=== PATIENT | male | born 1955 | race Caucasian/White ===

== ENCOUNTER 2020-02-07 06:02 | Outpatient (CLI) | payer OTHER ==
[2020-02-07 10:58] LABS: #Basophils 0.1 thou/uL (0.0-0.2); #Eosinphils 0.2 thou/uL (0.0-0.7); #Lymphocytes 2.1 thou/uL (1.20-3.40); #Monocytes 0.6 thou/uL (0.11-0.59); #Neutrophils 4.6 thou/uL (1.40-6.50); %Basophils 0.9 % (0.0-1.0); %Eosinophils 2.2 % (0.0-10.0); %Neutrophils 60.9 % (42.0-75.0); Hemoglobin 15.6 g/dL (14.0-18.0); Mean Corpuscular HGB CONC 32.6 g/dL (32.0-36.0); Mean Corpuscular Volume 92.2 fL (78.0-98.0); Platelet Count 206 thou/uL (130-400); RBC Distribution Width 11.9 % (11.5-14.5); Red Blood Cell (RBC) Count 5.19 mill/uL (4.70-6.10); White Blood Cell (WBC) Count 7.5 thou/uL (4.8-10.8)
[2020-02-07 11:00] LABS: Prothrombin Time 13.5 sec (12.0-14.7)
[2020-02-07 11:37] LABS: Anion Gap 18 mmol/L (10-20); BUN (Urea Nitrogen) 20 mg/dL (8.4-25.7); Calc. Creatinine Clearance 0 mL/min (70-130); Calcium 9.6 mg/dL (7.8-10.44); Carbon Dioxide 24 mmol/L (23-31); Chloride 102 mmol/L (98-107); Estimated GFR-MDRD Greater than 90; Glucose 89 mg/dL (80-115); Potassium 4.7 mmol/L (3.5-5.1); Sodium 139 mmol/L (136-145)
--- NOTE | 2020-02-07 14:43 | EKG ---
Test Reason : Blood Pressure : / mmHG Vent. Rate : 075 BPM Atrial Rate : 075 BPM P-R Int : 158 ms QRS Dur : 108 ms QT Int : 402 ms P-R-T Axes : 049 006 074 degrees QTc Int : 448 ms Normal sinus rhythm Normal ECG No previous ECGs available Confirmed by QUINTIN HAMILTON M.D. ([id number]) on 02/07/2020 2:42:39 PM Referred By: JANNETH Confirmed By:QUINTIN HAMILTON M.D.
[2020-02-07 16:52] LABS: SARS-CoV-2 MS2 Positive; SARS-CoV-2 N Gene Negative; SARS-CoV-2 S Gene Negative; SARS-CoV-2 by NAA Not Detected (NotDetected); SARS-CoV-2 orf1ab Negative
== END 2020-02-07 06:03 | disposition home or self-care (01) ==
LOC: LABBT 06:02
PROVIDERS: ATTEND Orthopaedic Surgery
DX: Z01.818 Encounter for other preprocedural examination (principal); Z20.828 Contact with and (suspected) exposure to other viral communicable diseases; M19.011 Primary osteoarthritis, right shoulder
CPT/HCPCS: 80048; 85025; 85610; 87635; 93005; 93010; U0003

== ENCOUNTER 2020-02-07 08:30 | Inpatient (IN) | payer OTHER ==
[2020-02-10] MEDS ORDERED: Sodium Chloride 0.9% 100 ML ONE (06:11)
[2020-02-10] MEDS ORDERED: Vancomycin 1.5 GRAM/300 ML BAG ONE (06:11)
[2020-02-10] MEDS ORDERED: Tranexamic Acid 1,000 MG/10 ML VIAL ONE (06:11)
[2020-02-10] MEDS ORDERED: Fentanyl 100 MCG/2 ML VIAL ONE ×2 (06:50→07:35)
[2020-02-10] MEDS ORDERED: Midazolam HCl 2 mg/2 ml Vial ONE (06:50)
[2020-02-10] MEDS ORDERED: HYDROcodone/Acetaminophen 10/325 mg Tablet PO PRN ×4 (06:57→07:45)
[2020-02-10] MEDS ORDERED: Fentanyl 100 MCG/2 ML VIAL IV PRN (07:41)
[2020-02-10] MEDS ORDERED: Ropivacaine 0.2% 550 ML 550 ML NERVE BLCK SCH (07:45)
[2020-02-10] MEDS ORDERED: Zolpidem Tartrate 5 MG TAB PO PRN (07:45)
[2020-02-10] MEDS ORDERED: Ondansetron PF 4 MG/2 ML Vial IVP PRN (07:45)
[2020-02-10] MEDS ORDERED: traMADol HCl 50 MG TAB PO PRN ×2 (07:45)
[2020-02-10] MEDS ORDERED: Promethazine HCl 25 MG/ML VIAL IM PRN ×2 (07:45→08:43)
[2020-02-10] MEDS ORDERED: SUGAMMADEX SODIUM 200 MG/2 ML VIAL ONE (08:25)
[2020-02-10] MEDS ORDERED: Promethazine HCl 25 MG/ML VIAL SLOW IVP PRN (08:43)
[2020-02-10] MEDS ORDERED: PACU-Morphine 4MG/ML VIAL SLOW IVP PRN (08:43)
[2020-02-10] MEDS ORDERED: Ondansetron PF 4 MG/2 ML Vial ONE (10:56)
[2020-02-10] MEDS ORDERED: PROPOFOL 200 MG/20 ML VIAL ONE (10:56)
[2020-02-10] MEDS ORDERED: Lidocaine 1% PF 5 ML VIAL ONE (10:56)
[2020-02-10] MEDS ORDERED: Rocuronium Bromide 10 MG/ML (10ML VIAL) ONE (10:56)
[2020-02-10] MEDS ORDERED: Ketorolac Tromethamine 30 MG/ML VIAL ONE (10:56)
[2020-02-10] MEDS ORDERED: Naloxone HCl 0.4 mg/ml Vial ONE (10:56)
[2020-02-10] MEDS ORDERED: PHENYLEPHRINE-NS 100 MCG/ML 10 ML SYRINGE ONE (10:56)
[2020-02-10] MEDS ORDERED: Ropivacaine 0.2% HCl/PF (40 MG/20 ML VIAL) ONE (10:56)
[2020-02-10] MEDS ORDERED: EPHEDRINE 25 MG/5 ML SYRINGE ONE (10:56)
[2020-02-10] MEDS ORDERED: Ropivacaine 0.5% HCl/PF (150 MG/30 ML VIAL) ONE (10:56)
[2020-02-10 11:57] VITALS: BMI 32.5
[2020-02-10] MEDS ORDERED: Ketorolac Tromethamine 30 MG/ML VIAL IVP SCH (12:00)
[2020-02-10] MEDS: Bupropion 150 MG XL TAB PO SCH (12:05)
[2020-02-10] MEDS: Citalopram 20 MG TAB PO SCH (12:05)
[2020-02-10] MEDS: Amlodipine 5 MG TAB PO SCH (12:05)
[2020-02-10] MEDS: Hydrochlorothiazide 25 MG TAB PO SCH (12:50)
[2020-02-10] MEDS: metFORMIN 500 MG TAB PO SCH ×2 (12:50→21:16)
[2020-02-10] MEDS: Trospium 20 MG TAB PO SCH ×2 (12:50→21:16)
[2020-02-10] MEDS: Losartan 25 MG TAB PO SCH (12:50)
[2020-02-10] MEDS: Ketorolac Tromethamine 30 MG/ML VIAL IVP SCH ×3 (13:01→23:45)
[2020-02-10] MEDS: CEFAZOLIN 2 GM in Premix Bag 1 BAG IVPB SCH ×2 (13:02→21:28)
[2020-02-10] MEDS ORDERED: rOPINIRole HCl 1 MG TAB PO SCH (21:00)
[2020-02-11] MEDS: Ketorolac Tromethamine 30 MG/ML VIAL IVP SCH ×2 (05:42→13:06)
--- NOTE | 2020-02-11 07:19 | OP ---
DATE OF PROCEDURE: 02/10/2020 PREOPERATIVE DIAGNOSIS: End-stage osteoarthritis, right glenohumeral joint. POSTOPERATIVE DIAGNOSIS: End-stage osteoarthritis, right glenohumeral joint. PROCEDURE PERFORMED: Press-fit/hybrid right total shoulder arthroplasty. CLAIMS SORTER: Abhishek Villegas PA-C ANESTHESIA: General via endotracheal tube, augmented with indwelling supraclavicular block. COMPONENTS USED: Tornier Aequalis Perform size large with a humeral stem size 4B, 132.5 degree neck angle and a 48 mm humeral head. FINDINGS: End-stage severe degenerative bicompartmental disease, [id number] arthrosis, periarticular osteophyte formation, large serous effusion, and hypertrophic synovium. DRAINS: None. SPECIMENS: None. COMPLICATIONS: None. COUNTS: Correct. ESTIMATED BLOOD LOSS: Less than 100. INDICATIONS FOR SURGERY: Ap is a 64-year-old white male who has had progressive right shoulder pain and problem with use and work overhead. He still has an intact rotator cuff noted by MRI and he has elected to proceed with total shoulder arthroplasty as definitive treatment for his pain. NARRATIVE REPORT: After standard deltopectoral approach, I examined the biceps tendon sheath which was inflamed and had a very thick bursal layer over the top with underlying ganglion. Biceps was opened. The biceps tendon sheath was opened. Biceps was in poor condition. It was taken off the superior glenoid tubercle and tacked and then tenodesed using #5 Ethibond suture to bone below the joint. The subscapularis was taken off using an osteotome to make a small lesser trochanteric osteotomy, tagged with four #5 Ethibond sutures. Head was dislocated. Osteophytes were trimmed. I released the anterior capsule, got the subscapularis to an elastic consistency. I then cut the humeral head at a 135-degree angle and trimmed the osteophytes. The head was then broached and sized appropriately. A trial prosthesis was left in the shaft and I approached the glenoid. Bone spurs were removed from around the glenoid. True center of the glenoid was identified. I made a single drill hole and reamed with an appropriate size reamer, trimmed osteophytes, punched the keel and did a trial reduction with the glenoid which appeared to be an appropriate fit. Trials were removed and irrigation was performed. The glenoid was punched into place and cement was allowed to cure. Extraneous cement was removed. Attention was turned back to the humerus where trial heads were used and the appropriate size was confirmed with the appropriate elasticity of the tissues. Trial was removed. Irrigation was performed. Four #5 Ethibond sutures were placed through the lesser tuberosity. The permanent implant was impacted into place. The subscapularis was repaired in a double-row fashion. The rotator interval was repaired with #1 Ethibond. Irrigation performed again. Deltopectoral interval was tacked closed with 0 Vicryl, subcutaneous closed with 2-0 Vicryl. The skin was closed with frankie. Sterile dressings applied. The patient was placed in a sling. There were no complications. ADDENDUM: The co-surgeon/parts room assistant was required to provide local bleeding control, tissue management as well as exposure, manipulation of the extremity as well as placement and malletting in of final implants as well as primary closure both in the presence and absence of the primary surgeon. Job ID: [id number]
[2020-02-11] MEDS: metFORMIN 500 MG TAB PO SCH (08:39)
[2020-02-11] MEDS: Citalopram 20 MG TAB PO SCH (08:41)
[2020-02-11] MEDS: Bupropion 150 MG XL TAB PO SCH (08:41)
[2020-02-11] MEDS: Trospium 20 MG TAB PO SCH (08:42)
[2020-02-11] MEDS: Hydrochlorothiazide 25 MG TAB PO SCH (08:42)
[2020-02-11] MEDS: Losartan 25 MG TAB PO SCH (08:42)
[2020-02-11] MEDS: Amlodipine 5 MG TAB PO SCH (08:46)
[2020-02-11 15:49] VITALS: BP 115/76; TEMP 98.5
== END 2020-02-11 17:00 | disposition home or self-care (01) | DRG 483 ==
LOC: SURG A 02-10 06:00
PROVIDERS: ADMIT Orthopaedic Surgery; ATTEND Orthopaedic Surgery
PROC: 0RRJ0JZ Replacement of Right Shoulder Joint with Synthetic Substitute, Open Approach (ICD-10-PCS; principal; 2020-02-10)
DX: M19.011 Primary osteoarthritis, right shoulder (principal); M25.711 Osteophyte, right shoulder; M25.411 Effusion, right shoulder; I10 Essential (primary) hypertension; E11.9 Type 2 diabetes mellitus without complications; F32.9 Major depressive disorder, single episode, unspecified; Z11.59 Encounter for screening for other viral diseases; Z79.84 Long term (current) use of oral hypoglycemic drugs; Z79.899 Other long term (current) drug therapy
CPT/HCPCS: 80048; 85025; 85610; 87635; 93005; A4306; C1713; J0690; J1885; J2250; J2310; J2405; J2704; J2795; J3010; J3370; J3490; U0003